=== PATIENT | male | born 1985 | race Caucasian/White ===

== ENCOUNTER 2017-08-07 11:06 | Emergency (ER) | payer SELFPAY ==
--- NOTE | 2017-08-07 12:17 | EDM.PDOC ---
ED HPI GENERAL MEDICAL PROBLEM - General Chief Complaint: General Stated Complaint: BODYACHES Time Seen by Provider: 08/07/17 11:55 Source of Information: Reports: Patient History Limitations: Reports: No Limitations - History of Present Illness INITIAL COMMENTS - FREE TEXT/NARRATIVE: HISTORY AND PHYSICAL: History of present illness: [Patient comes to the emergency room complaining of body aches and generalized malaise for the past 5 days. Has had fever and chills on and off as well as a dry hacking cough. One episode of vomiting on Thursday but none since. He's had some mild sore throat and headache. Complains of aches to upper and lower extremities as well as back. Decreased appetite. No change to bowel or bladder. Denies earaches and runny nose. No chest pain shortness of breath or difficulty breathing. Has been taking some NyQuil for his symptoms without significant improvement. States that he is otherwise healthy.] Review of systems: As per history of present illness and below otherwise all systems reviewed and negative. Past medical history: As per history of present illness and as reviewed below otherwise noncontributory. Surgical history: As per history of present illness and as reviewed below otherwise noncontributory. Social history: No reported history of drug or alcohol abuse. Family history: As per history of present illness and as reviewed below otherwise noncontributory. Physical exam: HEENT: Atraumatic, normocephalic. TMs are pearly navarro and without erythema. Nares are patent and without discharge. Oral mucous membranes are pink and moist no tonsillar swelling erythema or exudate. Neck supple, no lymphadenopathy. Lungs: Clear to auscultation, breath sounds equal bilaterally. Heart: S1S2, regular rate and rhythm. Abdomen: Soft, nondistended, nontender. Pelvis: Stable nontender. Genitourinary: Deferred. Rectal: Deferred. Extremities: Atraumatic, full ROM without deficit. Neurovascular unremarkable. Neuro: Awake, alert, oriented. Motor and sensory unremarkable throughout. Exam nonfocal. Impression: [Viral illness] Plan: [Discussed with patient that his symptoms appear consistent with a viral illness. Recommend that he push fluids and get plenty of rest. Symptomatic and conservative treatment. Strict return precautions are reviewed with the patient. He is in agreement with today's plan. Definitive disposition and diagnosis as appropriate pending reevaluation and review of above. body aches Pain Score (Numeric/FACES): 4 - Related Data Allergies Allergy/AdvReac Type Severity Reaction Status Date / Time Iodinated Contrast- Oral and Allergy Swelling Verified 08/07/17 11:35 IV Dye Home Meds: Home Meds Dextroamphetamine/Amphetamine [Adderall] 1 tab PO DAILY 08/07/17 [History] Past Medical History - Past Surgical History HEENT Surgical History: Reports: Other (See Below) Other HEENT Surgeries/Procedures: facial plate Social & Family History - Family History Family Medical History: Noncontributory - Tobacco Use Smoking Status *Q: Never Smoker - Alcohol Use Days Per Week of Alcohol Use: 1 Number of Drinks Per Day: 6 Total Drinks Per Week: 6 - Recreational Drug Use Recreational Drug Use: No ED ROS GENERAL - Review of Systems Review Of Systems: ROS reveals no pertinent complaints other than HPI. ED EXAM, GENERAL - Physical Exam Exam: See Below Course - Vital Signs Last Recorded V/S: Last Vital Signs Temp 99.2 F 08/07/17 11:35 Pulse 106 H 08/07/17 11:35 Resp 20 08/07/17 11:35 BP 170/79 H 08/07/17 11:35 Pulse Ox 98 08/07/17 11:35 - Orders/Labs/Meds Orders: Active Orders 24 hr Category Date Time Status INFLUENZA A+B AG SCREEN [RM] Stat Lab 08/07/17 11:39 Ordered Departure - Departure Time of Disposition: 12:15 Disposition: Home, Self-Care 01 Condition: Good Clinical Impression: Viral illness - Discharge Information Referrals: PCP,None [Primary Care Provider] - Additional Instructions: The following information is given to patients seen in the emergency department who are being discharged to home. This information is to outline your options for follow-up care. We provide all patients seen in our emergency department with a follow-up referral. The need for follow-up, as well as the timing and circumstances, are variable depending upon the specifics of your emergency department visit. If you don't have a primary care physician on staff, we will provide you with a referral. We always advise you to contact your personal physician following an emergency department visit to inform them of the circumstance of the visit and for follow-up with them and/or the need for any referrals to a consulting specialist. The emergency department will also refer you to a specialist when appropriate. This referral assures that you have the opportunity for follow-up care with a specialist. All of these measure are taken in an effort to provide you with optimal care, which includes your follow-up. Under all circumstances we always encourage you to contact your private physician who remains a resource for coordinating your care. When calling for follow-up care, please make the office aware that this follow-up is from your recent emergency room visit. If for any reason you are refused follow-up, please contact the emergency department at and asked to speak to the emergency department charge nurse. Primary Care [address] [place] [address] Follow-up with your primary care provider at the clinic listed above in the next 48-72 hours. And to recheck your blood pressure as it was elevated today. Push fluids, get plenty of rest, alternate Tylenol and ibuprofen as we discussed. Robitussin or Delsym cough syrup as needed for your cough. Return to ER as needed as discussed. - My Orders Last 24 Hours: My Active Orders 08/07/17 11:39 INFLUENZA A+B AG SCREEN [RM] Stat - Assessment/Plan Last 24 Hours: My Active Orders 08/07/17 11:39 INFLUENZA A+B AG SCREEN [RM] Stat
== END 2017-08-07 12:21 | disposition home or self-care (01) ==
LOC: MW.ED 11:06
DX: B34.9 Viral infection, unspecified (principal); Z79.899 Other long term (current) drug therapy; Z91.041 Radiographic dye allergy status
CPT/HCPCS: 99282